=== PATIENT | male | born 1970 | race Caucasian/White ===

== ENCOUNTER 2016-10-25 14:10 | Outpatient (CLI) | payer OTHER | END 2016-10-25 14:11 | disposition home or self-care (01) | LOC: SC 14:10 | PROVIDERS: ATTEND Nurse Practitioner Family | DX: G47.33 Obstructive sleep apnea (adult) (pediatric) (principal) | CPT/HCPCS: 99212; 99214 ==

== ENCOUNTER 2017-12-14 15:30 | Outpatient (CLI) | payer OTHER | END 2017-12-14 15:31 | disposition home or self-care (01) | LOC: SC 15:30 | PROVIDERS: ATTEND Nurse Practitioner Family | DX: G47.33 Obstructive sleep apnea (adult) (pediatric) (principal) | CPT/HCPCS: 99212; 99214 ==

== ENCOUNTER 2019-01-18 10:09 | Outpatient (CLI) | payer OTHER ==
[2019-01-18 10:59] VITALS: BP 110/60
--- NOTE | 2019-01-18 10:59 | SLEEP CARE CONSULTATION ---
Information from patient questionnaire entered by July Jackson. I have reviewed and concur with the information entered by July Jackson. This document represents the service I personally performed and the decisions made by me, Dayan Arriola, RN, MSN, MAGAZINE F[employer]ER. History of Present Illness Previous diagnosis: Mild, Obstructive Sleep Apnea-Hypopnea Syndrome AHI: 6.5 Reason for follow up: annual Equipment type: CPAP Equipment obtained from: [facility] Mask style: Full face ([place]) Mask brand: Respironics Backup mask available: Yes Last cushion change: 2 months ago CPAP Compliance Data - Data Reviewed with Patient Average duration of nightly device use: 6.6 Compliance rate %: 97.2 (180 days) Current pressure setting (cmH2O): 10 Humidity settin Average residual AHI: 1.6 Average large leak: 2 min 9 sec Subjective Patient concerns: reports: condensation in mask/hose (rare), dry mouth, nose, throat (a couple times a month - mouth - mild ). denies: aerophagia, mask discomfort, air blowing in eyes, mask leak noise, nasal congestion, epistaxis Observed to snore while using device: Yes (occasionally ) Current pressure setting perceived as: waking needing more air a couple times a week On therapy, patient: reports: sleeping better, awakening more refreshed, being more awake and alert during the day, more rested overall. denies: drowsiness while driving Initial [place] Sleepiness Scale score: 10 Current [place] Sleepiness Scale score: 9 Allergies and Home Medications Known drug allergies: No Home medication list reviewed: Yes Allergy and home medication list: ranitidine 150mg tab one twice daily Review of Systems Review of systems same as previous: Yes Physical Exam Blood Pressure: 110/60 Cuff size: long Heart Rate: 87 O2 Saturation: 98 Height: 5 ft 11 in Weight: 252 lb 9.6 oz Weight change since last visit: lost 12 pounds Body Mass Index: 35.2 BMI Classification: Obesity Class 2 Impression and Plan 1. Obstructive Sleep Apnea-Hypopnea Syndrome, mild, with good treatment compliance and good apnea control. On CPAP therapy, the patient has better sleep quality and is more rested overall. For air hunger, I will change his CPAP pressure to autoCPAP [id number]. He is to call me if symptoms not resolved or if uncomfortable. He has started to lose weight he gained with [facility]. He is currently at a 35 BMl, class 2 obesity and would like to lose about 50 more pounds. He has started a fitness program and has starting modifying diet with tracking food intake. We looked at BMI chart and new weight goal would reduce him to BMI 27. I explained that as he loses weight his apnea risk and CPAP pressure could also reduce. In addition, weight loss reduces overall health risks. The goal is to reduce central obesity. Symptoms to adjust CPAP pressure as loses weight. Since he is on rantidine, he was notified of new study risks and to discuss with PCP. For intermittent oral dryness, I showed him how he can turn off the heated hose so that he can have a higher humidity. The heated hose is only needed if condensation. Patient's apnea severity and rationale for treatment to reduce apnea, improve sleep quality and reduce cardiovascular and cerebrovascular events was reviewed. I also reviewed the benefit of consistent device use of CPAP for gastric reflux. * * Change CPAP pressure to 10-12 cmH2O * Adjust humidity and heated hose. * Notify me if snoring with mask or feeling that the pressure is too much or too little * Continue to lose weight * Follow up with PCP re new Zantac study. * Return for follow up in 1 year , or sooner if concerns arise * Due for updated device next annual. I spent 100% of this 34 minute visit face to face with the patient with greater than 50% of this was spent time counseling the patient and coordination of care.
== END 2019-01-18 10:10 | disposition home or self-care (01) ==
LOC: SC 10:09
PROVIDERS: ATTEND Nurse Practitioner Family
DX: G47.33 Obstructive sleep apnea (adult) (pediatric) (principal); E66.9 Obesity, unspecified; Z68.35 Body mass index [BMI] 35.0-35.9, adult
CPT/HCPCS: 99212; 99214

== ENCOUNTER 2020-01-21 14:32 | Outpatient (CLI) | payer OTHER ==
--- NOTE | 2020-01-21 14:29 | SLEEP CARE CONSULTATION ---
Information from patient questionnaire entered by Barrera Smith. I have reviewed and concur with the information entered by Barrera Smith. This document represents the service I personally performed and the decisions made by , Rebecca Vega ARNP. History of Present Illness Service Date and Time: 01/21/2020 1400 Previous diagnosis: Mild, Obstructive Sleep Apnea-Hypopnea Syndrome AHI: 6.5 Reason for follow up: annual (last seen 01/2019), other Equipment type: CPAP Equipment obtained from: [employer] (no longer dispensing supplies) Mask style: Full face ([place]) Backup mask available: Yes (old mask) Last cushion change: 1 week Year and Where: 2014 [facility] Type of Sleep Study: Polysomnography HPI additional information: BRANDIE NASH was diagnosed to have mild, AHI 6.5, obstructive sleep apnea- hypopnea syndrome and returned today for CPAP therapy for annual follow-up. CPAP Compliance Data - Data Reviewed with Patient Average duration of nightly device use: 6 h 8 min Compliance rate %: 96.7 Current pressure setting (cmH2O): 10 Humidity settin Heated hose settin Average residual AHI: 1.5 Average large leak: 0 sec Subjective Patient concerns: reports: dry mouth, nose, throat (dry throat more often). denies: aerophagia, mask discomfort, air blowing in eyes, mask leak noise, condensation in mask/hose, nasal congestion, epistaxis, other Observed to snore while using device: Yes (every once in a while) Current pressure setting perceived as: comfortable On therapy, patient: reports: sleeping better, awakening more refreshed, being more awake and alert during the day, more rested overall. denies: drowsiness while driving Initial [place] Sleepiness Scale score: 10 (in 2015) Current [place] Sleepiness Scale score: 8 Allergies and Home Medications Drug allergies reviewed: Yes (NKDA) Home medication list reviewed: Yes (stopped GERD medication; started omeprazole) Review of Systems Review of systems same as previous: Yes (no changes) Physical Exam Vital signs obtained and entered by: Telehealth visit to limit exposure during Covid pandemic Height: 5 ft 11 in Impression and Plan 1. Obstructive Sleep Apnea-Hypopnea Syndrome, mild, with good treatment compliance and good apnea control. On CPAP therapy, the patient has better sleep quality and is more rested overall. The patients CPAP is over 5 years old and of reasonable use. In addition, it is starting to make louder noise, a sign of malfunction. Thus, the CPAP will be updated. He has also had some increase in throat dryness. The new CPAPs also have a better humidity system which could assist control of patients dryness symptoms. A DWO prescription will be made. Compliance guidelines for new device and follow up discussed. Patient needs supplies updated too. Patient was informed that another DME can be used. I will have my major donor coordinator call and inform of DME options. A DWO prescription will then be made. Patient advised to contact this office if further supply problems. Patient would like to keep the pressure setting where it is and he has good apnea control, so no changes will be made. Patient's apnea severity and rationale for treatment to reduce apnea, improve sleep quality and reduce cardiovascular and cerebrovascular events was reviewed. I also reviewed the benefit of consistent device use of CPAP for gastric reflux. * Continue autoCPAP pressure at 10 cmH2O * Update machine and supplies * Transfer DME * Notify me if snoring with mask or feeling that the pressure is too much or too little * Attempt to lose weight * Call this office if any problems using CPAP * Return for follow up in 1-2 months after starting, or sooner if concerns arise Counseling Topics: Spare mask Visit Type: Telehealth Video Video Type: [employer] Patient Location: Home Location of Provider: Office Patient agrees and consents to this telehealth visit type: Yes Patient agrees to have their insurance billed: Yes Time Spent with Patient (minutes): 17 Provider Statement: I spent 100% of the Telehealth Video Call with the patient with greater than 50% spent counseling the patient and coordination of care.
== END 2020-01-21 14:33 | disposition home or self-care (01) ==
LOC: SC 14:32
PROVIDERS: ATTEND Nurse Practitioner Family
DX: G47.33 Obstructive sleep apnea (adult) (pediatric) (principal)

== ENCOUNTER 2020-04-11 16:38 | Outpatient (CLI) | payer OTHER ==
--- NOTE | 2020-04-11 17:14 | SLEEP CARE CONSULTATION ---
Information from patient questionnaire entered by Barrera Smith. I have reviewed and concur with the information entered by Barrera Smith. This document represents the service I personally performed and the decisions made by , Rebecca Vega ARNP. History of Present Illness Service Date and Time: 04/11/2020 1638 Previous diagnosis: Mild, Obstructive Sleep Apnea-Hypopnea Syndrome AHI: 6.5 Reason for follow up: first compliance (02/26/20) Equipment type: CPAP Equipment obtained [facility]: [facility]; getting supplies as needed) Mask style: Full face ([place]) Backup mask available: Yes (old mask) Last cushion change: 2 months ago Prior sleep studies: Yes Year and Where: 2014 [facility] Type of Sleep Study: Polysomnography HPI additional information: BRANDIE NASH was diagnosed to have mild, AHI 6.5, obstructive sleep apnea- hypopnea syndrome and returned today for CPAP therapy first compliance after updating device follow-up. Sleep Study - Results Type of Sleep Study: Polysomnography Year and Where: 2014 [facility] CPAP Compliance Data - Data Reviewed with Patient Average duration of nightly device use: 6 h 1 sec Compliance rate %: 86.7 Current pressure setting (cmH2O): 10 Humidity settin Heated hose settin Average residual AHI: 1.8 Average large leak: 2 min 24 sec Subjective Missed days of use due to: reports: travel Patient concerns: reports: dry mouth, nose, throat, other (Snore while using device). denies: aerophagia, mask discomfort, air blowing in eyes, mask leak noise, condensation in mask/hose, nasal congestion, epistaxis Observed to snore while using device: Yes (occasionally) Current pressure setting perceived as: comfortable On therapy, patient: reports: sleeping better, awakening more refreshed, being more awake and alert during the day, more rested overall. denies: drowsiness while driving Initial [place] Sleepiness Scale score: 10 (in 2014) Current [place] Sleepiness Scale score: 8 Allergies and Home Medications Drug allergies reviewed: Yes (NKDA) Home medication list reviewed: Yes (no changes) Review of Systems Review of systems same as previous: Yes (no changes) Physical Exam Heart Rate: 64 O2 Saturation: 98 Height: 5 ft 11 in Weight: 261 lb Body Mass Index: 36.3 BMI Classification: Obese Impression and Plan 1. Obstructive Sleep Apnea-Hypopnea Syndrome, mild, with good treatment compliance and good apnea control. On CPAP therapy, the patient has better sleep quality and is more rested overall. He likes the new machine but his daughter tells him that he is snoring occasionally through the mask. To resolve snore, the CPAP pressure will be changed to 10-12 cmH20. Patient advised to contact this office if pressure change uncomfortable or if pressure change does not resolve snore. He states the humidifier uses up all the water an hour before he gets up, so he is getting some oral dryness. He was advised to decrease the heated hose from 2 to 1 to see if this will reduce oral dryness. He should monitor for condensation and reduce humidity from 4 to 3 if this starts collecting in the tubing. He voiced understanding. Patient's apnea severity and rationale for treatment to reduce apnea, improve sleep quality and reduce cardiovascular and cerebrovascular events was reviewed. I also reviewed the benefit of consistent device use of CPAP for gastric reflux. * Change auto CPAP pressure to 10-12 cmH2O * Notify me if snoring with mask or feeling that the pressure is too much or too little * Attempt to lose weight * Call this office if any problems using CPAP * Return for follow up in 1 year, or sooner if concerns arise Counseling Topics: Spare mask, Weight loss health impact Visit Type: In Office Time Spent with Patient (minutes): 19 Provider Statement: I spent 100% of the Face to Face Visit with the patient with greater than 50% spent counseling the patient and coordination of care.
== END 2020-04-11 16:39 | disposition home or self-care (01) ==
LOC: SC 16:38
PROVIDERS: ATTEND Nurse Practitioner Family
DX: G47.33 Obstructive sleep apnea (adult) (pediatric) (principal); E66.9 Obesity, unspecified; Z68.36 Body mass index [BMI] 36.0-36.9, adult
CPT/HCPCS: 99212

== ENCOUNTER 2021-03-25 08:15 | Outpatient (CLI) | payer OTHER ==
[2021-03-25 09:01] VITALS: BP 135/94
--- NOTE | 2021-03-25 09:01 | SLEEP CARE CONSULTATION ---
Information from patient questionnaire entered by Rebekah Serna MA. I have reviewed and concur with the information entered by Rebekah Serna MA. This document represents the service I personally performed and the decisions made by , Rebecca Vega ARNP. History of Present Illness Service Date and Time: 03/25/2021 0815 Previous diagnosis: Mild, Obstructive Sleep Apnea-Hypopnea Syndrome AHI: 6.5 Reason for follow up: annual (LAST SEEN 03/2019) Equipment type: CPAP Equipment obtained from: Other ([facility]; getting supplies as needed) Mask style: Full face ([place]) Backup mask available: Yes (old mask) Prior sleep studies: Yes Year and Where: 2014 [facility] Type of Sleep Study: Polysomnography HPI additional information: BRANDIE NASH was diagnosed to have mild, AHI 6.5, obstructive sleep apnea- hypopnea syndrome and returned today for CPAP therapy annual follow-up. Sleep Study - Results Type of Sleep Study: Polysomnography Prior sleep studies: Yes Year and Where: 2014 [facility] CPAP Compliance Data - Data Reviewed with Patient Average duration of nightly device use: 6 HOURS 6 MINUTES Compliance rate %: 93.3 Current pressure setting (cmH2O): 10 Humidity settin Heated hose settin Average residual AHI: 1.5 Average large leak: 31 SECONDS Subjective Missed days of use due to: reports: mask issues, illness, travel Patient concerns: reports: dry mouth, nose, throat. denies: aerophagia, mask discomfort, air blowing in eyes, mask leak noise, condensation in mask/hose, nasal congestion, epistaxis, other Observed to snore while using device: Yes Current pressure setting perceived as: too low (sometimes comfortable, sometimes low) On therapy, patient: reports: sleeping better, awakening more refreshed, being more awake and alert during the day, more rested overall. denies: drowsiness while driving Initial [place] Sleepiness Scale score: 10 (in 2014) Current [place] Sleepiness Scale score: 4 Allergies and Home Medications Home medication list reviewed: Yes Allergy and home medication list: Dextroamphetamine-Amphetamine Clonidine Review of Systems Review of systems same as previous: No (ADHD, PTSD (night terrors) ) Physical Exam Vital signs obtained and entered by: L. CYN, FINAL COAT SPRAYER AAMA Blood Pressure: 135/94 (left) Cuff size: wrist Heart Rate: 62 O2 Saturation: 99 (cloth mask) Height: 5 ft 11 in Weight: 239 lb (with clothes) Body Mass Index: 33.3 BMI Classification: Obese Impression and Plan 1. Obstructive Sleep Apnea-Hypopnea Syndrome, mild, with good treatment compliance and good apnea control. On CPAP therapy, the patient has better sleep quality and is more rested overall. Patient has a [employer]Star device that is on the recall and he has had it registered for about 8 months. He has not seen any debris in his device. He also has and I informed him they would probably replace his device because it is on the recall but he declined at this time. He states sometimes the pressure is comfortable and sometimes it is too low. I will adjust his pressure to 11 cmH2O to see if this is more consistently comfortable. Patient has lost about 28 pounds over last few months after starting on his ADHD medications. He is able to control his portions more and is active. Patient advised to contact this office if pressure change uncomfortable. Patient has been getting more oral dryness. Oral dryness can be reduced by adjusting humidity setting higher or heated hose lower or by adjusting both settings. Patient advised that there are oral dryness products that can be used to reduce dryness such as Biotene products and Xylomelts. He voiced understanding. Patient's apnea severity and rationale for treatment to reduce apnea, improve sleep quality and reduce cardiovascular and cerebrovascular events was reviewed. I also reviewed the benefit of consistent device use of CPAP for gastric reflux. * Change CPAP pressure to [id number] * Notify me if snoring with mask or feeling that the pressure is too much or too little * Continue to try to lose weight * Call this office if any problems using CPAP * Return for follow up in 1 year, or sooner if concerns arise Counseling Topics: Spare mask, Weight loss health impact Visit Type: In Office Time Spent with Patient (minutes): 23 Provider Statement: I spent 100% of the Face to Face Visit with the patient with greater than 50% spent counseling the patient and coordination of care.
== END 2021-03-25 08:16 | disposition home or self-care (01) ==
LOC: SC 08:15
PROVIDERS: ATTEND Nurse Practitioner Family
DX: G47.33 Obstructive sleep apnea (adult) (pediatric) (principal); E66.9 Obesity, unspecified; Z68.33 Body mass index [BMI] 33.0-33.9, adult
CPT/HCPCS: 99212; 99213

== ENCOUNTER 2022-06-24 09:07 | Outpatient (CLI) | payer OTHER ==
--- NOTE | 2022-06-24 10:09 | SLEEP CARE CONSULTATION ---
Information from patient questionnaire entered by Elizabeth Paz. I have reviewed and concur with the information entered by Elizabeth Paz. This document represents the service I personally performed and the decisions made by me, Rebecca Vega ARNP. History of Present Illness Service Date and Time: 06/24/2022 09 Previous diagnosis: Mild, Obstructive Sleep Apnea-Hypopnea Syndrome AHI: 6.5 Reason for follow up: annual (LAST SEEN 03/2021) Equipment type: CPAP ([employer] recertified) Equipment obtained from: Other ([facility]; getting supplies as needed) Mask style: Full face Backup mask available: Yes (other mask) Last cushion change: couple days ago Prior sleep studies: Yes Year and Where: 2014 [facility] Type of Sleep Study: Polysomnography HPI additional information: BRANDIE NASH was diagnosed to have mild, AHI 6.5, obstructive sleep apnea- hypopnea syndrome and returned today for CPAP therapy annual follow-up. Sleep Study - Results Type of Sleep Study: Polysomnography Prior sleep studies: Yes Year and Where: 2014 [facility] CPAP Compliance Data - Data Reviewed with Patient Average duration of nightly device use: 4 HRS 39 MINS 32 SECS Compliance rate %: 69.4 (12/24/21-06/21/22; 174/180 days used) Current pressure setting (cmH2O): 10-12 Average residual AHI: 1.6 Central apnea: 0.1 Obstructive apnea: 0.6 Average large leak: 8 mins 57 secs Subjective Missed days of use due to: reports: travel, other (fell asleep in chair downstairs) Patient concerns: denies: aerophagia, mask discomfort, air blowing in eyes, mask leak noise, condensation in mask/hose, nasal congestion, dry mouth, nose, throat, epistaxis Observed to snore while using device: Yes (according to , not all the time) Current pressure setting perceived as: comfortable On therapy, patient: reports: sleeping better, awakening more refreshed, being more awake and alert during the day, more rested overall. denies: drowsiness while driving Initial [place] Sleepiness Scale score: 10 (in 2014) Current [place] Sleepiness Scale score: 7 (06/24/22) Allergies and Home Medications Known drug allergies: No Drug allergies reviewed: Yes Home medication list reviewed: Yes Allergy and home medication list: Allergies nuts Allergy (Uncoded 06/23/22 08:27) Anaphylaxis New Meds: Dextroamphetamine 20 mg/Dextroamphetamine ER 30 mg Clonidine HCI Review of Systems Review of systems same as previous: No (ADHD/PTSD) Physical Exam Vital signs obtained and entered by: ELIZABETH Ely MA Blood Pressure: 126/80 (LEFT ARM) Cuff size: regular Heart Rate: 83 O2 Saturation: 97 Height: 5 ft 11 in Weight: 247 lb 3.2 oz (with clothes/shoes) Weight change since last visit: 8 lb gain Body Mass Index: 34.4 BMI Classification: Obese Impression and Plan 1. Obstructive Sleep Apnea-Hypopnea Syndrome, mild, with good treatment compliance and good apnea control. On CPAP therapy, the patient has better sleep quality and is more rested overall. Patient has significant improvement of their sleep apnea and is satisfied with current CPAP therapy. Patient denies problems with oral dryness, nasal congestion, epistaxis, skin irritation or aerophagia. Patient's apnea severity and rationale for treatment to reduce apnea, improve sleep quality and reduce cardiovascular and cerebrovascular events was reviewed. I also reviewed the benefit of consistent device use of CPAP for gastric reflux. 2. Obesity, unspecified. Currently patients BMI is 34.4. Obesity increases the risk of apnea, CPAP pressure requirements and overall health risks especially cardiovascular and diabetes. Thus patient is advised to continue to try to lose weight. The patient's CPAP pressure range should accommodate some weight loss. * Continue auto CPAP pressure at 10-12 cmH2O * Update supplies * Notify me if snoring with mask or feeling that the pressure is too much or too little * Attempt to lose weight * Call this office if any problems using CPAP * Return for follow up in 1 year, or sooner if concerns arise Counseling Topics: Spare mask, Weight loss health impact Visit Type: In Office Time Spent with Patient (minutes): 22 Provider Statement: I spent 100% of the Face to Face Visit with the patient with greater than 50% spent counseling the patient and coordination of care.
[2022-06-24 10:11] VITALS: BP 126/80
== END 2022-06-24 09:08 | disposition home or self-care (01) ==
LOC: SC 09:07
PROVIDERS: ATTEND Nurse Practitioner Family
DX: G47.33 Obstructive sleep apnea (adult) (pediatric) (principal); E66.9 Obesity, unspecified; Z68.34 Body mass index [BMI] 34.0-34.9, adult
CPT/HCPCS: 99212; 99213

== ENCOUNTER 2023-07-28 09:51 | Outpatient (CLI) | payer OTHER ==
--- NOTE | 2023-07-28 10:15 | Sleep Patient Instructions ---
Sleep Center Visit Summary - Patient Visit Information Reason for Visit: Annual follow-up - Patient Instructions Additional Instructions: You will continue with CPAP therapy with pressure set at 10-12 cmH2O. A supply prescription will be updated with your DME. We encourage you to continue to try to lose weight. Please follow up with the sleep care office in 1 year. - Clinic Information Contact: [facility] [address] [place] [address] [email or web address] T: [phone]
--- NOTE | 2023-07-28 10:21 | SLEEP CARE CONSULTATION ---
Information from patient questionnaire entered by Stephanie Paz. I have reviewed and concur with the information entered by Stephanie Paz. This document represents the service I personally performed and the decisions made by me, Rebecca Vega ARNP. History of Present Illness Service Date and Time: 07/28/2023 0951 Previous diagnosis: Mild, Obstructive Sleep Apnea-Hypopnea Syndrome AHI: 6.5 Reason for follow up: annual (LAST SEEN 06/2022) Equipment type: CPAP ([employer] recertified) Equipment obtained from: Other ([facility]; getting supplies as needed) Mask style: Full face Backup mask available: Yes Last cushion change: couple weeks Prior sleep studies: Yes Year and Where: 2014 [facility] Type of Sleep Study: Polysomnography HPI additional information: BRANDIE NASH was diagnosed to have mild, AHI 6.5, obstructive sleep apnea- hypopnea syndrome and returned today for CPAP therapy annual follow-up. Sleep Study - Results Type of Sleep Study: Polysomnography Prior sleep studies: Yes Year and Where: 2014 [facility] CPAP Compliance Data - Data Reviewed with Patient Average duration of nightly device use: 4 HRS 35 MINS 34 SECS Compliance rate %: 71.2 (07/25/22-07/24/23; 363/365 days used) Current pressure setting (cmH2O): 10-12 Average residual AHI: 1.1 Central apnea: 0.1 Obstructive apnea: 0.4 Hypopnea: 0.6 Average large leak: 5 mins 1 secs Subjective Patient concerns: reports: mask leak noise, other (hose parts from mask pull apart easily; machine records no use at times). denies: aerophagia, mask discomfort, air blowing in eyes, condensation in mask/hose, nasal congestion, dry mouth, nose, throat, epistaxis Observed to snore while using device: No Current pressure setting perceived as: comfortable (to too low) On therapy, patient: reports: sleeping better, awakening more refreshed, being more awake and alert during the day, more rested overall. denies: drowsiness while driving Initial [facility] Sleepiness Scale score: 10 (in 2014) Current [facility] Sleepiness Scale score: 7 (07/28/23) Allergies and Home Medications Known drug allergies: No (as listed) Drug allergies reviewed: Yes Home medication list reviewed: Yes (no changes) Allergy and home medication list: Allergies nuts Allergy (Uncoded 07/26/23 11:46) Anaphylaxis Review of Systems Review of systems same as previous: Yes (NO CHANGE) Physical Exam Vital signs obtained and entered by: STEPHANIE Ely MA Blood Pressure: 135/83 (RIGHT ARM) Cuff size: long Heart Rate: 81 O2 Saturation: 97 Height: 5 ft 11 in Weight: 263 lb 3.2 oz Weight change since last visit: 16 lb gain Body Mass Index: 36.7 BMI Classification: Obese Impression and Plan 1. Obstructive Sleep Apnea-Hypopnea Syndrome, mild, with good treatment compliance and good apnea control. On CPAP therapy, the patient has better sleep quality and is more rested overall. Patient states that his DME, [facility], kind of "forced a change" of mask on him. He used to get the [employer] full face mask but they are sending him something else that seems to fall apart pretty easily. I encouraged him to call them back to see if he can get it changed back to the [employer] or another mask that is not falling apart margy olivarez. He voiced understanding and will reach out to them. Patient has significant improvement of their sleep apnea and is satisfied with current CPAP therapy. Patient denies problems with oral dryness, nasal congestion, epistaxis, skin irritation or aerophagia. Patient's apnea severity and rationale for treatment to reduce apnea, improve sleep quality and reduce cardiovascular and cerebrovascular events was reviewed. I also reviewed the benefit of consistent device use of CPAP for gastric reflux. 2. Obesity, unspecified. Currently patients BMI is 36.7. He has gained weight and is working with doctor to find out causes. Obesity increases the risk of apnea, CPAP pressure requirements and overall health risks especially cardiovascular and diabetes. Thus patient is advised to lose weight. * Continue auto CPAP pressure at 10-12 cmH2O * Update supply prescription * Notify me if snoring with mask or feeling that the pressure is too much or too little * Attempt to lose weight * Call this office if any problems using CPAP * Return for follow up in 12 months, or sooner if concerns arise Counseling Topics: Spare mask, Weight loss health impact Prescriptions: Device supplies Follow up with Sleep Care in: 1 year Visit Type: In Office Time Spent with Patient (minutes): 24 Provider Statement: I spent 100% of the Face to Face Visit with the patient with greater than 50% spent counseling the patient and coordination of care.
[2023-07-28 10:22] VITALS: BP 135/83; O2SAT 97
== END 2023-07-28 09:52 | disposition home or self-care (01) ==
LOC: SC 09:51
PROVIDERS: ATTEND Nurse Practitioner Family
DX: G47.33 Obstructive sleep apnea (adult) (pediatric) (principal); E66.9 Obesity, unspecified; Z68.36 Body mass index [BMI] 36.0-36.9, adult
CPT/HCPCS: 99212; 99213